=== PATIENT | female | born 1995 | race African-American/Black ===

== ENCOUNTER 2020-06-19 17:47 | Emergency (ER) | payer OTHER, BC ==
[~2020-06-19] VITALS: Ht 177.8 cm; Wt 93.2 kg
[~2020-06-19 17:47] MED LIST: ALBUTEROL0.083 % IN; NO; ORTHO TRI-CY OR; SPRINTEC 2828 DAY PO
[2020-06-19] MEDS ORDERED: ORPHENADRINE100 MG PO (21:17)
[2020-06-19] MEDS ORDERED: IBUPROFEN600 MG PO (21:17)
[2020-06-19 21:30] VITALS: BP 126/78
== END 2020-06-19 21:30 | disposition home or self-care (01) | DRG 552 ==
LOC: ED 17:47
DX: M62.830 Muscle spasm of back (principal); M54.2 Cervicalgia; V43.52XA Car driver injured in collision with other type car in traffic accident, initial encounter